=== PATIENT | female | born 1965 | race African-American/Black ===

== ENCOUNTER 2020-11-01 21:03 | Emergency (ER) | payer SELFPAY ==
[2020-11-01 21:13] VITALS: BP 170/90; PULSE 108; TEMP 98.9; BMI 37.1
[2020-11-01] MEDS ORDERED: KETOROLAC TROMETHAMINE 30 MG/1 ML VIAL IM ONE (22:07)
[2020-11-01] MEDS ORDERED: ACETAMINOPHEN 325 MG TABLET (FP) PO ONE (22:07)
== END 2020-11-02 00:33 | disposition home or self-care (01) ==
LOC: JER 21:03
PROC: 2W3LX1Z Immobilization of Right Lower Extremity using Splint (ICD-10-PCS; principal; 2020-11-01)
PROC: 3E0233Z Introduction of Anti-inflammatory into Muscle, Percutaneous Approach (ICD-10-PCS; 2020-11-01)
DX: S82.831A Other fracture of upper and lower end of right fibula, initial encounter for closed fracture (principal)
CPT/HCPCS: 73590-TC-RT-FY; 73610-TC-RT-FY; 73630-TC-RT-FY; 99284-25